=== PATIENT | male | born 1960 | race Caucasian/White ===

== ENCOUNTER → 2022-10-15 09:42 | Outpatient (BNVA) | payer MEDICAID, SELFPAY | PROVIDERS: Family Provider Internal Medicine; PCP Internal Medicine; Visit Provider Internal Medicine | DX: M05.20 Rheumatoid vasculitis with rheumatoid arthritis of unspecified site (principal); Z11.1 Encounter for screening for respiratory tuberculosis; Z11.59 Encounter for screening for other viral diseases | CPT/HCPCS: 80053; 81003; 82550; 85025; 85651; 86140; 86160; 86162; 86200; 86235; 86255; 86376; 86431; 86480; 86704; 86803; 87340; 99204 ==

== ENCOUNTER → 2022-12-17 09:59 | Outpatient (BNVA) | payer MEDICAID, SELFPAY | PROVIDERS: Family Provider Internal Medicine; PCP Internal Medicine; Visit Provider Internal Medicine | DX: M25.50 Pain in unspecified joint (principal); M05.20 Rheumatoid vasculitis with rheumatoid arthritis of unspecified site; M19.042 Primary osteoarthritis, left hand | CPT/HCPCS: 72040; 73120; 73620; 99214 ==